=== PATIENT | male | born 1940 | race Caucasian/White ===

== ENCOUNTER 2023-05-22 23:08 | Observation (INO) ==
[2023-05-22] MEDS ORDERED: NORCO 5-325 PO ONE (23:10)
[2023-05-22] MEDS ORDERED: ROBAXIN PO ONE (23:11)
--- NOTE | 2023-05-22 23:13 | ED.PDOC ---
General ED Provider: Dr. MARY RAINEY MD Chief Complaint: Back Pain Stated Complaint: back pain 82-year-old male presents the emergency department by ambulance for evaluation of back pain. Patient states that a week ago he lifted a heavy chair. He has been having back pain since. Has not taken any medication for it because he does not like to take pills. States tonight the pain was too much. Denies any fecal or urinary incontinence. Denies any numbness in his legs. Denies any abdominal pain. Reports midline and right-sided back pain. Points to his low back. Has been putting IcyHot type substance on his back without relief. Time Seen by Provider: 05/22/23 23:10 Mode of Arrival: Ambulance Information Source: Patient and EMT Exam Limitations: No limitations Nursing and Triage Documentation Reviewed and Agree: Yes Review of Systems Review Of Systems Constitutional: Reports No symptoms All Other Systems: Reviewed and Negative Physical Exam Physical Exam Appearance: Reports Well-appearing Ill-appearing: None Pain Distress: None Eyes: Reports EOMI ENT: Reports Oropharynx normal Neck: Supple Respiratory: Reports Airway patent Cardiovascular: Reports Pulses normal GI/: Reports Soft and Nontender Musculoskeletal: Reports Normal strength, ROM intact and No edema Skin: Reports Warm, Dry and Normal color Neurological: Reports Sensation intact, Motor intact, Reflexes intact, Cranial nerves intact, Alert and Oriented Psychiatric: Reports Affect appropriate Critical Care Note Critical Care Note Total Critical Care Time (mins): 0 Course Course Orders, Labs, Meds: Orders Category Date Time Status ADMIT OBSERVATION [PLACE PATIENT OBSERVATION] .TO ADMISSION 05/23/23 01:23 Active MEDSURG (MONITORED BED) ACTIVITY .Up With Assistance CARE 05/23/23 01:24 Active BLOOD GLUCOSE MONITORING (MED/SURG) 0630,1100,1700,2100 CARE 05/23/23 01:24 Active GIVE HS SNACK 2100 CARE 05/23/23 01:25 Active TELEMETRY MONITORING TELE CARE 05/23/23 01:24 Active VITAL SIGNS Q12HR CARE 05/23/23 01:24 Active ADA 1800 SABI. DIET DIETARY 05/23/23 Breakfast Ordered HS SNACK DIETARY 05/23/23 Dinner Ordered ED IV/MEDIPORT/POWERPORT .ONCE EMERGENCY 05/23/23 01:24 Active SARS COV-2 RNA RAPID THERESE Stat LAB 05/23/23 01:23 Ordered UA [URINALYSIS C & S IF INDICATED] Stat LAB 05/22/23 23:11 Uncollected 0.9 % Sodium Chloride [Saline Flush] Meds 05/23/23 01:24 Ordered 1 syr IVF PRN PRN Hydrocodone Bit/Acetaminophen [Orr 5-325] Meds 05/22/23 23:10 Discontinued 1 tab PO ONCE ONE Methocarbamol [Robaxin] Meds 05/22/23 23:11 Discontinued 500 mg PO ONCE ONE RESUSCITATION STATUS Routine OTHERS 05/23/23 01:[address] ABDOMEN/PELVIS WO CONTRAST Stat RADS 05/22/23 23:10 Completed OT EVALUATION Routine THERAPIES 05/23/23 09:00 Ordered PT INPATIENT EVALUATION Routine THERAPIES 05/23/23 01:24 Ordered Medications Generic Name Dose Route Start Last Admin Trade Name Freq PRN Reason Stop Dose Admin Sodium Chloride 1 syr 05/23/23 01:24 0.9% Sodium Chloride 10 Ml Disp.Syrin IVF PRN PRN To flush IV Discontinued Medications Generic Name Dose Route Start Last Admin Trade Name Freq PRN Reason Stop Dose Admin Hydrocodone Bitart/Acetaminophen 1 tab 05/22/23 23:10 05/22/23 23:32 Hydrocodone Bit/Acetaminophen 5/325 Mg Tablet PO 05/22/23 23:11 1 tab ONCE ONE Administration Methocarbamol 500 mg 05/22/23 23:11 05/22/23 23:32 Methocarbamol 500 Mg Tablet PO 05/22/23 23:12 500 mg ONCE ONE Administration CT demonstrates acute T12 anterior wedge fracture, no retropulsion. Patient neurologically intact. Difficulty standing and moving secondary to severe pain. Will discuss case with spine surgery. Awaiting callback from [facility]. 12:20 AM [facility] paged for spine surgery consultation. 12:27 AM Attempted to get patient up to the bedside. With significant assistance he was able to stand from a seated position. Significant discomfort but somewhat improved after the hydrocodone. Still required a significant amount of assistance to help him get to a standing position. 12:46 AM Discussed case with Dr. Callahan, on-call neurosurgery at [facility]. He recommends placing the patient in a TLSO spine and discharge home or have him admitted to the hospitalist service for pain control. Contacted our hospitalist team who will admit for pain control and PT OT evaluation. Vital Signs: Temp Pulse Resp BP Pulse Ox 05/22/23 23:14 99.2 F 99 18 179/97 H 97 Discharge Plan Discharge Patient Disposition: PLACED OBSERVATION Discharge Problem: Closed T12 fracture Prescriptions: No Action aspirin [Adult Aspirin Regimen] 81 mg tablet,delayed release (DR/EC) 81 mg PO DAILY pioglitazone 45 mg tablet 45 mg PO DAILY simvastatin 20 mg tablet 20 mg PO DAILY lisinopril 30 mg tablet 30 mg PO DAILY metformin 750 mg tablet extended release 24 hr 750 mg PO DAILY pregabalin 50 mg capsule 50 mg PO DAILY Did you review [place] [employer] for ALL controlled substances?: Not Applicable ED Provider: MARY RAINEY Physician Progress Note: []
--- NOTE | 2023-05-23 00:01 | CT ---
EXAM: CT OF THE ABDOMEN AND PELVIS WITHOUT CONTRAST History: Right flank and back pain Technique: 2.[address] of the abdomen and pelvis without contrast FINDINGS: Large hiatus hernia. Trace left pleural fluid. Small pericardial effusion. Normal liver , pancreas, spleen and adrenal glands. Prior cholecystectomy. Kidneys and proximal collecting syste m are unremarkable. The appendix is normal. Bowel loops demonstrate normal caliber. No inflamatory change seen in the mesentery or retroperitoneum. Atherosclerotic calcification of the aorta without aneurysm. Colonic diverticula of the sigmoid. No pelvic fat inflammation. Normal pelvic genitourinary structu res. No acute findings of the skeleton. Left-sided hydrocele within the field of view. Superior pl ate concavity deformities of the T12 and L3. Chronic features favored at L3. Acute features suspect ed at T12 with some paravertebral edema. Impression: 1. No inflammatory process, bowel or urinary obstruction 2. Trace left pleural fluid 3. Large hiatus hernia 4. Small pericardial effusion 5. Colonic diverticulosis 6. Mild T12 concavity and wedge deformity of acute features favored. There is no retropulsion. All CT scans are performed using dose optimization techniques as appropriate to the performed exam an d include at least one of the following: Automated exposure control, adjustment of the mA and/or kV according t o size, and the use of iterative reconstruction technique.
[2023-05-23 02:07] LABS: BILIRUBIN,URINE Negative (NEGATIVE); CLARITY,URINE Clear (CLEAR); COLOR,URINE Yellow (YELLOW); GLUCOSE, URINE (UA) Negative (NEGATIVE); KETONES,URINE Trace (NEGATIVE); LEUKOCYTE ESTERASE ,URINE Negative (NEGATIVE); NITRITE,URINE Negative (NEGATIVE); PROTEIN,URINE Negative (NEGATIVE); URINE, BLOOD Negative (NEGATIVE); UROBILINOGEN,URINE 0.2 (0.2)
[2023-05-23 02:15] LABS: SARS COV-2 RNA RAPID NAAT NEGATIVE (NEGATIVE)
[2023-05-23 03:03] VITALS: BMI 23.8
[2023-05-23] MEDS: NORCO 5-325 PO PRN ×2 (06:23→15:14)
[2023-05-23 09:28] LABS: BASOPHILS # (AUTO) 0.2 K/uL (0-0.2); BASOPHILS % (AUTO) 1.9 % (0.0-3.0); EOSINOPHILS # (AUTO) 0.3 K/ul (0.0-0.7); EOSINOPHILS % (AUTO) 2.7 % (0.0-7.0); HEMOGLOBIN 14.3 g/dl (14.0-18.0); IMMATURE GRANULOCYTE # (AUTO) 0.1 (0.0-1.0); IMMATURE GRANULOCYTE % (AUTO) 0.9 % (0.0-5.0); LYMPHOCYTES # (AUTO) 0.9 K/uL (0.60-3.4); LYMPHOCYTES % (AUTO) 7.3 (10.0-50.0); MEAN CORPUSCULAR HEMOGLOBIN 26.1 pg (27.0-31.0); MEAN CORPUSCULAR HGB CONC 31.8 (31.8-35.4); MEAN CORPUSCULAR VOLUME 82.3 fl (80.0-94.0); MONOCYTES # (AUTO) 1.4 K/uL (0.4-2.0); MONOCYTES % (AUTO) 11.3 (0-10); NEUTROPHILS # (AUTO) 9.7 K/ul (2.0-6.9); NEUTROPHILS % (AUTO) 75.9 % (42.2-75.2); PLATELET COUNT 709 10^3/uL (140-440); RDW COEFFICIENT OF VARIATION 25.6 % (11.6-14.8); RED BLOOD COUNT 5.47 10^6/ul (4.70-6.10); WHITE BLOOD COUNT 12.74 K/ul (4.2-10.2)
[2023-05-23 09:40] LABS: ALANINE AMINOTRANSFERASE 12.7 U/L (0-50); ALBUMIN 3.89 g/dL (3.5-5.0); ALKALINE PHOSPHATASE 121.2 U/L (56-119); ASPARTATE AMINO TRANSFERASE 38.2 U/L (17-59); BILIRUBIN,TOTAL 0.66 mg/dL (0.2-1.3); BLOOD UREA NITROGEN 11.8 mg/dL (9-20); CALCIUM 8.77 mg/dL (8.4-10.2); CARBON DIOXIDE 26.7 mmol/L (22-30.0); CHLORIDE 101.5 mmol/L (98-107); CREATININE 0.96 mg/dL (0.60-1.10); GLUCOSE 229.1 mg/dL (74-106); POTASSIUM 3.46 mmol/L (3.5-5.1); SODIUM 134.1 mmol/L (134.5-145); TOTAL PROTEIN 6.57 g/dL (6.3-8.2)
--- NOTE | 2023-05-23 10:12 | PCM ---
Date of Service Date Seen by Provider: 05/23/23 Time Seen by Provider: 08:55 Admit Day/Time Admission Date: 05/23/23 Admission Time: 01:30 Reason for Admission Chief Complaint: PAIN CONTROL, T12 FRACTURE Hospital Provider Hospital Provider[facility]AKELIN WILKERSON[facility] History of Present Illness History of Present Illness: 82 yo male presented to the ER with complaints of back pain. Patient states that he was lifting a heavy chair that he shouldn't have been a felt some sharp pains and "heard something". Denies any loss of bowel or bladder control. Denies numbness or tingling to extremities. Denies any other complaints. Pain is 6/10 at this time that he describes as an ache. CT showed acute T12 anterior wedge fracture with no retropulsion. ER provider discussed case with Dr. Callahan - neurosurgery at [facility]. Recommended TSLO brace and pain control. Case Discussed With Case Discussed With: Patient's case was discussed with the ER Physicians, Dr. DENNIS Medical History Skin cancer C44.90 - Unspecified malignant neoplasm of skin, unspecified (ICD-10) CVA (cerebral vascular accident) I63.9 - Cerebral infarction, unspecified (ICD-10) Diabetes mellitus E11.9 - Type 2 diabetes mellitus without complications (ICD-10) Hypertension I10 - Essential (primary) hypertension (ICD-10) Surgical History History of cholecystectomy Z90.49 - Acquired absence of other specified parts of digestive tract (ICD- 10) Social History Smoking and tobacco status: Never smoker Allergies Allergies Allergy/AdvReac Type Severity Reaction Status Date / Time No Known Allergies Allergy Verified 04/30/23 06:26 Current Medications Home Medications aspirin 81 mg tablet,delayed release (Adult Aspirin Regimen) 81 mg PO DAILY 04/30/23 [History Confirmed 05/22/23 Last Taken Unknown] lisinopril 30 mg tablet 30 mg PO DAILY 04/30/23 [History Confirmed 05/23/23 Last Taken Unknown] metformin 750 mg tablet,extended release 24 hr 750 mg PO DAILY 04/30/23 [History Confirmed 05/23/23 Last Taken Unknown] pioglitazone 45 mg tablet 45 mg PO DAILY 04/30/23 [History Confirmed 05/23/23 Last Taken Unknown] pregabalin 50 mg capsule 50 mg PO DAILY 04/30/23 [History Confirmed 05/23/23 Last Taken Unknown] simvastatin 20 mg tablet 20 mg PO DAILY 04/30/23 [History Confirmed 05/23/23 Last Taken Unknown] Home Hydrocodone Bitart/Acetaminophen (Hydrocodone Bit/Acetaminophen 5/325 Mg Tablet) 1 tab PO Q6HR PRN PRN Reason: MODERATE PAIN Last Admin: 05/23/23 06:23 Dose: 1 tab Sodium Chloride (0.9% Sodium Chloride 10 Ml Disp.Syrin) 1 syr IVF PRN PRN PRN Reason: To flush IV Discontinued Medications Hydrocodone Bitart/Acetaminophen (Hydrocodone Bit/Acetaminophen 5/325 Mg Tablet) 1 tab PO ONCE ONE Stop: 05/22/23 23:11 Last Admin: 05/22/23 23:32 Dose: 1 tab Methocarbamol (Methocarbamol 500 Mg Tablet) 500 mg PO ONCE ONE Stop: 05/22/23 23:12 Last Admin: 05/22/23 23:32 Dose: 500 mg Review of Systems Constitutional: Reports No symptoms Head: Reports Normocephalic and Atraumatic Eyes: Reports No symptoms Ears: Reports No symptoms Nose: Reports No symptoms Mouth: Reports No symptoms Throat: Reports No symptoms Cardiovascular: Reports No symptoms Respiratory: Reports No symptoms Gastrointestinal: Reports No symptoms Genitourinary: Reports No Symptoms Musculoskeletal: Reports Back Pain Endocrine: Reports No symptoms Hematology: Reports No symptoms Immunology: Reports No symptoms Neurological: Reports No symptoms Psychiatric: Reports No symptoms Physical examination Most Recent Vital Signs: Most Recent Vital Signs Temperature 98.5 F 05/23/23 06:00 Temperature Source Temporal Artery Scan 05/23/23 06:00 Temperature Source Oral 05/22/23 23:14 Pulse Rate 97 05/23/23 06:00 Respiratory Rate 18 05/23/23 06:00 Blood Pressure 155/86 H 05/23/23 06:00 Blood Pressure Mean 109 05/23/23 06:00 Blood Pressure Right Arm 160/94 05/23/23 02:55 Blood Pressure Location Left Arm 05/23/23 06:00 Blood Pressure Position Supine 05/23/23 06:00 O2 Sat by Pulse Oximetry 97 05/23/23 06:00 Oxygen Delivery Method Room Air 05/23/23 08:48 Height 6 ft 05/23/23 02:55 Weight 176 lb 05/23/23 02:55 Appearance: Positive No Apparent Distress and Alert and Oriented x3 Skin: Positive Warm, Good Turgor and Good Color HEENT: Positive Normocephalic, Atraumatic and PERRLA Neck: Positive Supple and Midline Trachea Chest/Lungs: Positive Symmetrical With Equal Breath Sounds, Clear to Auscultation Bilaterally and Good Air Movement all 4 Lung Dennis Heart: Positive RRR and Pulses Normal GI/: Positive Soft, Nontender, Bowel Sounds Normal, No Distention and No Organomegaly Musculoskeletal: Positive Not Examined Extremities: Positive Intact Peripheral Pulses, Stable Joints Without Laxity and Good ROM in All Joints Neurological: Positive Sensation Intact, Motor intact, Reflexes Intact, Alert, Oriented and Muscle Strength 5/5 in Upper and Lower Extremities Bilaterally Psychiatric: Positive Oriented x4 Labs This Visit Labs This Visit: Labs This Visit 05/23/23 05/23/23 01:32 01:48 Urine Color Yellow Urine Clarity Clear Urine pH 6.0 Ur Specific M[place]on[place] 1.015 Urine Protein Negative Urine Glucose (UA) Negative Urine Ketones Trace H Urine Blood Negative Urine Nitrite Negative Urine Bilirubin Negative Urine Urobilinogen 0.2 Ur Leukocyte Esterase Negative SARS CoV-2 RNA Rapid THERESE Negative Imaging Imaging: EXAM: CT OF THE ABDOMEN AND PELVIS WITHOUT CONTRAST Impression: 1. No inflammatory process, bowel or urinary obstruction 2. Trace left pleural fluid 3. Large hiatus hernia 4. Small pericardial effusion 5. Colonic diverticulosis 6. Mild T12 concavity and wedge deformity of acute features favored. There is no retropulsion. Review Statement Review Statement: I have independently reviewed and interpreted the labs/EKGs/imaging that were ordered by the ER provider. I have reviewed all outside records that are available currently in our EMR including imaging/notes/labs from previous visits. Plan Plan: 1. T12 Fracture - pain control with norco 5/325 Q6H prn and flexeril TID prn, needs TSLO brace upon discharge, follow-up with ortho upon discharge, PT/OT 2. Diabetes Mellitus - ADA diet, continue home medications 3. Hypertension - chronic, continue home medications 4. Hyperlipidemia - chronic, continue home medications DVT Prophylaxis: Up with assistance Time Spent: Greater than 80 minutes spent with patient, 50% of the time spent with this patient was devoted to counseling and coordination of care. [facility]annin minutes spent discussing advance care planning. Disposition: Admit to: Med/Surg Observation Ful Code Discussed Plan of Care with Dr. Abida Waldrop. Medications Medication Orders: Medications Ordered Category Date Time Status 0.9 % Sodium Chloride [Saline Flush] Meds 05/23/23 01:24 Active 1 syr IVF PRN PRN Hydrocodone Bit/Acetaminophen [Salome 5-325] Meds 05/23/23 05:55 Active 1 tab PO Q6HR PRN
[2023-05-23] MEDS ORDERED: NON-FORMULARY MEDICATION (Metformin 750 mg tablet extended release 24 hr) PO SCH (11:15)
[2023-05-23] MEDS: LYRICA PO SCH (12:25)
[2023-05-23] MEDS: ACTOS PO SCH (12:26)
[2023-05-23] MEDS: GLUCOPHAGE PO SCH (12:26)
[2023-05-23] MEDS: ZESTRIL PO SCH (12:27)
[2023-05-23] MEDS: FLEXERIL PO PRN ×2 (12:28→20:43)
[2023-05-23] MEDS ORDERED: ZOCOR PO SCH (21:00)
[2023-05-24 05:58] VITALS: PULSE 107
[2023-05-24] MEDS ORDERED: ASPIRIN EC PO SCH (07:30)
[2023-05-24 08:44] LABS: BASOPHILS # (AUTO) 0.2 K/uL (0-0.2); BASOPHILS % (AUTO) 1.3 % (0.0-3.0); EOSINOPHILS # (AUTO) 0.2 K/ul (0.0-0.7); HEMATOCRIT 47.4 % (42.0-52.0); HEMOGLOBIN 15.1 g/dl (14.0-18.0); IMMATURE GRANULOCYTE # (AUTO) 0.1 (0.0-1.0); IMMATURE GRANULOCYTE % (AUTO) 1.2 % (0.0-5.0); LYMPHOCYTES # (AUTO) 0.8 K/uL (0.60-3.4); LYMPHOCYTES % (AUTO) 6.9 (10.0-50.0); MEAN CORPUSCULAR HGB CONC 31.9 (31.8-35.4); MEAN CORPUSCULAR VOLUME 81.6 fl (80.0-94.0); MONOCYTES # (AUTO) 1.6 K/uL (0.4-2.0); MONOCYTES % (AUTO) 13.3 (0-10); NEUTROPHILS % (AUTO) 75.3 % (42.2-75.2); PLATELET COUNT 751 10^3/uL (140-440); RDW COEFFICIENT OF VARIATION 25.9 % (11.6-14.8); RED BLOOD COUNT 5.81 10^6/ul (4.70-6.10); WHITE BLOOD COUNT 11.97 K/ul (4.2-10.2)
[2023-05-24 09:07] LABS: ALANINE AMINOTRANSFERASE 13.1 U/L (0-50); ALBUMIN 4.07 g/dL (3.5-5.0); ALKALINE PHOSPHATASE 132.7 U/L (56-119); ASPARTATE AMINO TRANSFERASE 26.2 U/L (17-59); BILIRUBIN,TOTAL 0.76 mg/dL (0.2-1.3); BLOOD UREA NITROGEN 11.2 mg/dL (9-20); CALCIUM 9.02 mg/dL (8.4-10.2); CARBON DIOXIDE 27.5 mmol/L (22-30.0); CHLORIDE 101.9 mmol/L (98-107); CREATININE 0.95 mg/dL (0.60-1.10); GLUCOSE 168.4 mg/dL (74-106); POTASSIUM 3.52 mmol/L (3.5-5.1); SODIUM 136.3 mmol/L (134.5-145); TOTAL PROTEIN 7.15 g/dL (6.3-8.2)
[2023-05-24] MEDS: ACTOS PO SCH (09:22)
[2023-05-24] MEDS: ZESTRIL PO SCH (09:23)
[2023-05-24] MEDS: NORCO 5-325 PO PRN (09:23)
[2023-05-24] MEDS: GLUCOPHAGE PO SCH (09:24)
[2023-05-24] MEDS: LYRICA PO SCH (09:24)
--- NOTE | 2023-05-24 09:41 | DCSUM ---
Admission Date Admission Date: 05/22/23 Discharge Date Discharge Date: 05/24/23 Admission Diagnosis Admission Diagnosis: 1. T12 Fracture Discharge Diagnosis Discharge Diagnosis: 1. T12 Fracture 2. Diabetes Mellitus - chronic, stable 3. Hypertension - chronic, stable 4. Hyperlipidemia - chronic, stable Hospital Provider Hospital Provider: LORENZO SANCHEZ PA-C, [facility] Summary of History and Physical Summary of History and Physical: 82 yo male presented to the ER with complaints of back pain. Patient states that he was lifting a heavy chair that he shouldn't have been a felt some sharp pains and "heard something". Denies any loss of bowel or bladder control. Denies numbness or tingling to extremities. Denies any other complaints. Pain is 6/10 at this time that he describes as an ache. CT showed acute T12 anterior wedge fracture with no retropulsion. ER provider discussed case with Dr. Callahan - neurosurgery at [facility]. Recommended TSLO brace and pain control. Hospital Course Subjective: Patient was treated with flexeril and norco. His pain was controlled. He was able to be ambulatory without difficulty. PT worked with him and educated on pain minimizing maneuvers. Discussed risks of narcotics. Encouraged stool softeners. F/u with pcp as scheduled this week and/or ortho outpatient if needed. Fall precautions discussed. Pt given script for TSLO brace. Son will take him to [employer] supply store to be fitted and get brace. Wear during daytime hours. Appearance: Pleasant, No Apparent Distress, Alert and Well-appearing HEENT: MMM CVS: No Murmur Abdomen: Soft, Non-Tender and No Distention Respiratory: No Dyspnea Extremities: No Edema Additional Findings: Mid thoracic pain with palpation. Ambulatory. Vital Signs: Most Recent Vital Signs Temperature 98.9 F 05/24/23 05:57 Temperature Source Temporal Artery Scan 05/24/23 05:57 Temperature Source Oral 05/22/23 23:14 Pulse Rate 107 H 05/24/23 05:57 Respiratory Rate 20 05/24/23 05:57 Blood Pressure 161/87 H 05/24/23 05:57 Blood Pressure Mean 111 05/24/23 05:57 Blood Pressure Right Arm 160/94 05/23/23 02:55 Blood Pressure Location Left Arm 05/24/23 05:57 Blood Pressure Position Supine 05/24/23 05:57 O2 Sat by Pulse Oximetry 95 05/24/23 05:57 Oxygen Delivery Method Room Air 05/24/23 09:00 Height 6 ft 05/23/23 02:55 Weight 176 lb 05/23/23 02:55 Imaging: EXAM: CT OF THE ABDOMEN AND PELVIS WITHOUT CONTRAST History: Right flank and back pain Technique: 2.[address] of the abdomen and pelvis without contrast FINDINGS: Large hiatus hernia. Trace left pleural fluid. Small pericardial effusion. Normal liver, pancreas, spleen and adrenal glands. Prior cholecystectomy. Kidneys and proximal collecting system are unremarkable. The appendix is normal. Bowel loops demonstrate normal caliber. No inflamatory change seen in the mesentery or retroperitoneum. Atherosclerotic calcification of the aorta without aneurysm. Colonic diverticula of the sigmoid. No pelvic fat inflammation. Normal pelvic genitourinary structures. No acute findings of the skeleton. Left-sided hydrocele within the field of view. Superior plate concavity deformities of the T12 and L3. Chronic features favored at L3. Acute features suspected at T12 with some paravertebral edema. Impression: 1. No inflammatory process, bowel or urinary obstruction 2. Trace left pleural fluid 3. Large hiatus hernia 4. Small pericardial effusion 5. Colonic diverticulosis 6. Mild T12 concavity and wedge deformity of acute features favored. There is no retropulsion. Lab Results Last 24 Hours: 05/24/23 05/23/23 08:39 09:26 WBC 12.74 H RBC 5.47 Hgb 14.3 Hct 45.0 MCV 82.3 MCH 26.1 L MCHC 31.8 RDW Coeff of Seth 25.6 H Plt Count 709 H Immature Gran % (Auto) 0.9 Neut % (Auto) 75.9 H Lymph % (Auto) 7.3 L [place] % (Auto) 11.3 H Eos % (Auto) 2.7 Baso % (Auto) 1.9 Neut # (Auto) 9.7 H Lymph # (Auto) 0.9 [place] # (Auto) 1.4 Eos # (Auto) 0.3 Baso # (Auto) 0.2 Immature Gran # (Auto) 0.1 Sodium 136.3 134.1 L Potassium 3.52 3.46 L Chloride 101.9 101.5 Carbon Dioxide 27.5 26.7 Anion Gap 10.42 9.36 BUN 11.2 11.8 Creatinine 0.95 0.96 Estimated GFR (MDRD) 76.00 75.00 BUN/Creatinine Ratio 11.78 12.29 Glucose 168.4 H D 229.1 H Calcium 9.02 8.77 Total Bilirubin 0.76 0.66 AST 26.2 38.2 ALT 13.1 12.7 Alkaline Phosphatase 132.7 H 121.2 H Total Protein 7.15 6.57 Albumin 4.07 3.89 Globulin 3.08 2.68 Albumin/Globulin Ratio 1.32 1.45 Discharge Instructions Discharge Planning: Discharge Planning > [address] Emely Waldrop. Discharge Medications: Medications at Discharge (Home Meds & RX) aspirin 81 mg tablet,delayed release (Adult Aspirin Regimen) 81 mg PO DAILY 04/30/23 lisinopril 30 mg tablet 30 mg PO DAILY 04/30/23 metformin 750 mg tablet,extended release 24 hr 750 mg PO DAILY 04/30/23 pioglitazone 45 mg tablet 45 mg PO DAILY 04/30/23 pregabalin 50 mg capsule 50 mg PO DAILY 04/30/23 simvastatin 20 mg tablet 20 mg PO DAILY 04/30/23 cyclobenzaprine 10 mg tablet 5 mg (1/2 x 10 mg) PO TID PRN pain (scale score 4- 6) #30 tabs 05/24/23 hydrocodone 5 mg-acetaminophen 325 mg tablet 1 tab PO Q6HR PRN pain (scale score 7-10) #20 tabs 05/24/23 Discharge Plan Discharge Discharge Orders: Discharge Patient (ONCE); Ordered 05/24/23 Ordered By: LORENZO SANCHEZ Activity Restrictions/Additional Instructions: DISCHARGE TO HOME STOP BY DME STORE FOR [employer], PRESCRIPTION GIVEN F/U WITH PCP AND/OR ORTHO PRESCRIPTIONS: NORCO AND FLEXERIL, AVOID TAKING TOGETHER. ONLY TAKE NEEDED. CONSIDER STOOL SOFTENER FALL PRECAUTIONS DX: T12 FRACTURE F/U WITH PCP ON 05/26 SCHEDULED. Instructions: Thoracolumbar Fracture (ED), Lumbar Brace (GEN) Care Plan Goals: Problem: Activity Intolerance Goal: Demonstrate increased activity intolerance Instructions: Determine cause of activity intolerance Change positions slowly Gradually increase activity Report intolerances to provider Problem: Alteration in Comfort/Pain Goal: Manage pain at a tolerable level Instructions: Monitor character, location and intensity Express expectations of pain relief Pain medication as ordered Position for maximal comfort Pain management prior to activities Patient Disposition: HOME SELF-CARE Prescriptions: New cyclobenzaprine 10 mg Tablet 5 mg PO TID PRN (Reason: pain (scale score 4-6)) Qty: 30 0RF hydrocodone-acetaminophen 5-325 mg Tablet 1 tab PO Q6HR PRN (Reason: pain (scale score 7-10)) Qty: 20 0RF Continued aspirin [Adult Aspirin Regimen] 81 mg tablet,delayed release (DR/EC) 81 mg PO DAILY pioglitazone 45 mg tablet 45 mg PO DAILY simvastatin 20 mg tablet 20 mg PO DAILY lisinopril 30 mg tablet 30 mg PO DAILY metformin 750 mg tablet extended release 24 hr 750 mg PO DAILY pregabalin 50 mg capsule 50 mg PO DAILY Did you review [place] PNEUM[employer]IC [employer]IC for ALL controlled substances?: Yes Discussed opioids are addictive and Narcan is available by prescription or from pharmacy.: Yes Condition: Good
[2023-05-24 10:03] LABS: ANISOCYTOSIS 2+ (NOT PRESENT); HYPOCHROMASIA OCCASIONAL (NOT PRESENT); MICROCYTOSIS 1+ (NOT PRESENT); POIKILOCYTOSIS 2+ (NOT PRESENT); POLYCHROMASIA 1+ (NOT PRESENT)
[2023-05-24 10:30] VITALS: BP 155/86; RESP 16; TEMP 98.5
== END 2023-05-24 10:26 | disposition home or self-care (01) ==
LOC: EDACCT# → ED 23:08 → MEDSURG B 23:08
PROVIDERS: ADMIT Hospitalist; ATTEND Physician Assistant
DX: Z20.822 Contact with and (suspected) exposure to COVID-19; I10 Essential (primary) hypertension; Z51.81 Encounter for therapeutic drug level monitoring; E78.5 Hyperlipidemia, unspecified; S22.080A Wedge compression fracture of T11-T12 vertebra, initial encounter for closed fracture; Z79.84 Long term (current) use of oral hypoglycemic drugs; E11.9 Type 2 diabetes mellitus without complications; X50.0XXA Overexertion from strenuous movement or load, initial encounter